=== PATIENT | female | born 1955 | race Caucasian/White ===

== ENCOUNTER 2017-01-13 21:43 | Observation (INO) | payer OTHER ==
[~2017-01-13] VITALS: Ht 165.1 cm; Wt 88.8 kg
--- NOTE | ~2017-01-13 | CST ---
Cardiac Perfusion Imaging Demographics Patient Name TIMOTEO Ferro Gender Female Patient Number [id number] Race Visit Number [id number] Ethnicity [employer] ID Room Number 428 Accession Number [id number] Height 65 inches Date of 1955 Weight 194 pounds Age 61 year(s) BSA 1.95 m Referring Physician Ish Crouch BMI 32.28 kg/m Interpreting Physician LEIGHA Garcia Date of study 01/15/2017 King Dewayne Estes MD Supervising MD/MLP Ish Crouch NM Technologist Yasemin Woody Ordering Physician Ish Crouch Stress Fanny Andrews wound care technician Stress ECG Reading Ish Crouch Nurse Nicole Murray Physician King Dewayne Orr The procedure was explained in detail to the patient. Risks, complications and alternative treatments were reviewed. Written consent was obtained. Medications Reviewed with Patient prior to Procedure. Procedure Procedure Type: Nuclear Stress Test:Exercise Procedure Start time: 01/15/2017 07:30 Indications: Chest pain, Family history of coronary artery disease, Hyperlipidemia and Hypertension. Risk Factors The patient risk factors include:obesity, hypertension, family history of premature CAD and dyslipidemia. Conclusions Summary Perfusion Images: The overall quality of the study is good. Left ventricular cavity is noted to be normal on the stress and rest studies. There is no evidence of abnormal lung activity. The right ventricle is not visualized and cannot be assessed. Stress SPECT images demonstrate homogenous tracer distribution throughout the myocardium. Rest SPECT images demonstrate homogenous tracer distribution throughout the myocardium. Gated SPECT imaging reveals normal myocardial thickening and wall motion. The left ventricular ejection fraction was calculated to be 80%. Impression ECG portion of stress test is clinically negative for ischemia by diagnostic criteria. Myocardial perfusion imaging is normal. Overall left ventricular systolic function was normal without regional wall motion abnormalities. There are no previous studies for comparison. Stress Protocols Resting ECG Normal sinus rhythm. Within normal limits. Resting HR:67 bpm Resting BP:118/78 mmHg Pre-stress physical exam: Normal. Obese. Stress Protocol:Exercise - Fernando Peak HR:151 bpm HR response: Appropriate Peak BP:168/92 mmHg BP response: Appropriate Predicted HR: 158 bpm HR/BP product:54740 % of predicted HR: 96 Max exercise: 14.6 METS Test duration:07:01 min Reason for termination:Fatigue Exercise effort:Fair ECG Findings No ischemic EKG changes. Nonspecific ST segment changes, upsloaping. Arrhythmias No rhythm abnormality. Symptoms Fatigue. Complications Procedure complication: None. Stress Interpretation The electrocardiographic portion of the stress test was negative for ischemia. Blood pressure response was normal, heart rate response was normal for exertion. This corresponds to a low risk stress test. [facility] to read nuclear portion. Imaging Results Summed scores - Summed stress score: 0 - Summed rest score: 0 - Summed difference score: 0 Stress ejection Ejection fraction:80 % EDV :66 ml ESV :13 ml Stroke volume :53 ml LV mass :103 gr Imaging Protocols Rest Stress Isotope:Tc99m Myoview IV Isotope: Tc99m Myoview IV Isotope dose:10.4 mCi Isotope dose:31.2 mCi Date:01/15/2017 06:30 Date:01/15/2017 07:30 Technique: SPECT Technique: Gated Supine SPECT Supine IV remains in place after procedure. Scan Time:45-60 minutes post Scan Time:15-30 minutes post injection injection Medical History Admission Data Admission date: 01/13/2017 Admission Time: 23:36 Hospital Status: Inpatient. Signatures
--- NOTE | 2017-01-14 17:08 | ER ---
ADMIT: 01/13/2017 RM/LOC: 428 [facility] MR#: [id number] [address] [facility] [address] [place] [id number] ETHAN MAHMOOD [address] [place] [address] Emergency Room Report SEX: F AGE: 61 : 1955 DATE: 01/13/2017 HISTORY OF PRESENT ILLNESS: A 61-year-old female with 2 days' worth of chest tightness. 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 This tightness has been present for the past 48 hours, constant, not associated with activity. No other associated symptoms. PAST MEDICAL HISTORY: Hypertension, hypothyroidism, anxiety. PHYSICAL EXAMINATION: GENERAL: Limited physical exam reveals a 61-year-old female, in no acute distress. LUNGS: Clear to auscultation. CARDIOVASCULAR: Regular rate and rhythm. No murmurs, rubs, or gallops. ABDOMEN: Soft, nontender. EXTREMITIES: Unremarkable. EMERGENCY ROOM COURSE: A cardiac workup was initiated, the results of which were unremarkable. Chest x-ray was likewise unremarkable. However, she is given sublingual nitroglycerin, which relieved the pain somewhat. An inch of paste was applied, which brought the pain from a 4 down to 1. She was subsequently admitted with acute coronary syndrome. Navdeep Monge MD/ regina JOB #: [id number] CC: Miko Deng MD, Attending Physician Miko Deng MD, Family Physician
[2017-01-16] MEDS ORDERED: CELEXA10 MG PO (10:49)
[2017-01-16] MEDS ORDERED: CYCLOBENZAPRINE10 MG PO (10:49)
[2017-01-16] MEDS ORDERED: XANAX DPS0.5 MG PO (10:50)
[2017-01-16] MEDS ORDERED: BUPROPION HCL75 MG PO (10:50)
[2017-01-16] MEDS ORDERED: KLONOPIN DPS0.5 MG PO (10:50)
[2017-01-16] MEDS ORDERED: SYNTHROID125 MCG PO (10:50)
[2017-01-16] MEDS ORDERED: ULTRAM DPS50 MG PO (10:51)
[2017-01-16] MEDS ORDERED: ZESTRIL DPS20 MG PO (10:54)
[2017-01-16] MEDS ORDERED: HYDROCHLOROTHIA25 MG PO (10:54)
[2017-01-16] MEDS ORDERED: ZOCOR DPS40 MG PO (10:54)
[2017-01-16] MEDS ORDERED: GLUCOPHAGE-DPS500 MG PO (10:55)
[2017-01-16] MEDS ORDERED: ASPIR 8181 MG PO (10:56)
[2017-01-16] MEDS ORDERED: PEPCID40 MG PO (10:56)
[2017-01-16] MEDS ORDERED: TRULICITY0.75 MG/0. SQ (10:56)
--- NOTE | 2017-02-11 16:23 | HP ---
ADMIT: 01/13/2017 RM/LOC: 428 [facility] MR#: [id number] [id number] [facility] [address] [place] [id number] ETHAN MAHMOOD S [address] [place] [id number] History and Physical SEX: F AGE: 61 : 1955 DATE OF SERVICE: CHIEF COMPLAINT: Substernal pressure. HISTORY OF PRESENT ILLNESS: The patient is a 61-year-old female with a past medical history of obesity status post gastric bypass, hyperlipidemia, generalized anxiety disorder, and hypothyroidism, who presented to the emergency room with 48 hours of substernal chest pressure. She reports that she had a gradual onset of pressure 48 hours prior to arrival and denies any known inciting event. The pain was intermittent over the last 48 hours and at its worst was 8/10. She reports some radiation of the pain to her bilateral shoulders. Denies any radiation to her jaw, diaphoresis, shortness of breath, or presyncope with the pressure. She states she has maybe had this pressure many years ago but nothing recent. She did not appreciate a change in the discomfort with activity. 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 She has no personal history of coronary artery disease though she has a strong family history of coronary artery disease including premature disease and in her father. She is a never smoker. She denies any recent fevers, chills, shortness of breath, cough, nausea, vomiting, or peripheral edema. Upon presentation to the emergency room, her chest pain was rated as a 5/10, and she reports she had some relief from the aspirin she was given prior to arrival. She has been given two doses of sublingual nitroglycerin and nitroglycerin paste which reduced her pain to nearly resolved. She was noted to be frequently clearing her throat in the emergency room with complaint of a salty taste in her mouth. She was hemodynamically stable with normal vital signs. PAST MEDICAL HISTORY: 1. Obesity, status post gastric bypass surgery. 2. Hyperlipidemia. 3. Generalized anxiety disorder. 4. Hypothyroidism. MEDICATIONS: 1. Cyclobenzaprine 10 mg p.o. daily. 2. Citalopram 40 mg p.o. daily. 3. Clonazepam 0.5 mg p.o. at bedtime. 4. Synthroid 125 mcg p.o. daily. 5. Phentermine 30 mg p.o. daily. 6. Xanax 0.5 mg p.o. daily. 7. Bupropion 75 mg p.o. daily. 8. Ultram 50 mg p.o. daily. 9. Hydrochlorothiazide 25 mg p.o. daily. 10.Lisinopril 20 mg p.o. daily. 11.Simvastatin 40 mg p.o. daily. 12.Protonix 40 mg p.o. daily. ALLERGIES: CODEINE. ADMIT: 01/13/2017 RM/LOC: 428 [facility] MR#: [id number] [address] [id number] ETHAN MAHMOOD S [address] [place] [address] History and Physical SEX: F AGE: 61 : 1955 FAMILY HISTORY: Coronary artery disease in her father, uncle, and grandmother with her father having his first bypass surgery in his 50s and shortly thereafter. SOCIAL HISTORY: The patient is . 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 She is a never smoker. She and her own and manage a local bar. REVIEW OF SYSTEMS: A 10-point review of systems is completed and negative except as noted in the HPI. PHYSICAL EXAMINATION: VITAL SIGNS: 103/67, 65, 11, 97%, 98.9. GENERAL: Awake, alert, and oriented, in no acute distress, noted to be frequently clearing her throat. HEENT: Head is normocephalic and atraumatic. Pupils are equal, round, react to light. Extraocular muscles are intact. Mucous membranes are moist. NECK: Supple. Thyroid not palpable. Trachea is midline. HEART: Regular rate and rhythm without murmurs. No JVD appreciated. LUNGS: Clear to auscultation bilaterally without wheeze, rhonchi, or rales. ABDOMEN: Soft, nontender to palpation. Bowel sounds are present. EXTREMITIES: Without cyanosis, clubbing, or edema. NEURO: Grossly intact. PSYCH: Normal mood and affect. LABORATORY DATA: WBC is 6.1, HGB 13.0, PLT 185, creatinine 0.6, potassium 3.4. CK-MB and troponin all within normal limits. EKG, normal sinus rhythm at 70 beats per minute. ASSESSMENT: 1. Substernal chest pressure - atypical angina versus gastroesophageal ADMIT: 01/13/2017 RM/LOC: [address] [place] [address] MR#: [id number] [address] [place] [id number] ETHAN MAHMOOD [address] [place] [id number] History and Physical SEX: F AGE: 61 : 1955 reflux disease. 2. Hyperlipidemia. 3. Obesity. 4. Generalized anxiety disorder. 5. Hypothyroidism. PLAN: Admit the patient and trend cardiac enzymes to rule out acute coronary syndrome. I discussed it is reassuring that her EKG is normal and her cardiac enzymes are as well since the pain started 48 hours prior to arrival. We will treat the patient empirically for gastroesophageal reflux disease as well as other chronic comorbidities. We will check a lipid panel, hemoglobin A1c, and a TSH to screen for risk factors for coronary artery disease. Karina Morales MD Resident / Gee Pittman MD / regina JOB #: [id number] CC: Miko Deng MD, Attending Physician Miko Deng MD, Family Physician
== END 2017-01-15 14:00 | disposition home or self-care (01) ==
LOC: ER 21:43 → 4PCU 23:36
PROVIDERS: ADMIT Family Medicine
DX: R07.89 Other chest pain (principal); E78.5 Hyperlipidemia, unspecified; F41.1 Generalized anxiety disorder; E03.9 Hypothyroidism, unspecified; Z79.899 Other long term (current) drug therapy; Z88.5 Allergy status to narcotic agent; Z98.84 Bariatric surgery status